=== PATIENT | female | born 1945 | race Caucasian/White ===

== ENCOUNTER 2025-04-26 09:11 | Emergency (ER) | payer OTHER, SELFPAY ==
[2025-04-26 09:13] VITALS: BP 142/67
--- NOTE | 2025-04-26 09:25 | ED.GENMED ---
History of Present Illness
General
Chief Complaint: Fall
Source: patient
Exam Limitations: none
Time Seen by Provider: 04/26/25 09:14
Nursing documentation reviewed up to this point in time: agreed with
History of Present Illness
History of Present Illness:
79 yr old female sent from [facility] presents to the ER for evaluation of fall. I spoke to nurse at facility patient was found on the side of the bed on the floor. Medics report they did find her on the floor. Medics were unsure if she had left
arm pain because she was holding her left wrist and seemed to be guarding her left wrist with her right arm.
Patient presents awake alert confused not able to give history.
Phy Exam
General Physical Exam
General Presentation: no apparent distress
General age: appears stated age
General Skin: warm and dry
General Habitus: normal
General Mental: alert
General Hydration: appears well hydrated
Neurological Exam
Neurological Exam: alert and other (Attempt to answer questions oriented to name confused at baseline)
Musculoskeletal Exam
Musculoskeletal Exam: other (No obvious head injury on exam full range of motion to bilateral upper and lower extremities)
Skin Exam
Skin Exam: normal color and warm/dry
Psychiatric Exam
Psychiatric Exam: normal mood/affect
Course
Orders/Labs/Results
Orders:
Orders
04/26/25 09:22
CT Cervical Spine W/o Iv Contr Urgent
Comment:
Reason For Exam: trauma
CT Head W/o Iv Contrast Urgent
Comment:
Reason For Exam: trauma
04/26/25 09:31
Forearm, Left 2 View [CR Forearm - Left 2 View] Urgent
Comment:
Reason For Exam: trauma
Shoulder, Left, Trauma CR [CR Shoulder, Trauma - Left] Urgent
Comment:
Reason For Exam: trauma
Vital Signs
Initial and Last Documented VS:
Initial Vital Signs
Temp Pulse Resp BP Pulse Ox
98.1 F 65 20 142/67 99
04/26/25 09:13 04/26/25 09:13 04/26/25 09:13 04/26/25 09:13 04/26/25 09:13
Last Documented Vital Signs
Temp Pulse Resp BP Pulse Ox
98.1 F 63 20 142/62 98
04/26/25 09:13 04/26/25 12:27 04/26/25 09:13 04/26/25 12:27 04/26/25 12:27
MDM/Problems Addressed
Differential Diagnosis Includes:
Not limited to head injury, extremity injury
MDM/Problems Addressed:
Patient is a 79-year female who was found on the floor by her bed at nursing care facility. She has a history of dementia Family with patient. Patient is at baseline mental status no obvious head injury on exam however because she was on the
floor and unknown if head injury imaging was done and negative for acute findings. Initially medics were not sure if she was guarding her left arm however on exam she is fully moving all extremities x-rays were done to rule out any injury because
of her dementia history and she is a difficult historian. X-rays were negative. She ambulated at baseline stable for discharge back to nursing care facility.
Chronic conditions affecting care:
Alzheimer's
*Radiology
Radiology exam reviewed: radiology read reviewed
*Pulse Oximetry
SaO2: 99
Oxygen Mode of Delivery: Room air
Patient hypoxic: no
*Critical Care Note
Total Time (30-74mins, 75-104mins- exclusive of procedures): Not Applicable
ED Attending Note
-
Portions of this chart may have been created with voice recognition software.� Occasional wrong word or��sound alike� substitutions may have occurred due to the inherent limitations of voice recognition software.
Discharge Plan
Departure
Patient Disposition: Home (Routine Discharge)
Date of Disposition: 04/26/25
Time of Disposition: 12:23
Patient with high blood pressure during this ER visit?: Yes
Condition: Fair
Covid-19: Not Applicable
Discharge Problem:
Fall
Instructions: Preventing falls in adults
Referrals:
UNKNOWN - PT DOES,NOT KNOW [Family Provider]
Activity Restrictions/Additional Instructions:
CAT scans were done of patient's head and cervical spine along with x-rays of her left arm which were negative.
Interventions
Interventions:
*General Assessment Last Done: 04/26/25 09:25
*Neglect/Abuse Screening Last Done: 04/26/25 09:26
*ED COVID-19 Vaccine History Last Done: 04/26/25 09:25
*ED Influenza Vaccine History Last Done: 04/26/25 09:25
[facility] Fall Risk Assessment Tool Last Done: 04/26/25 09:26
*Risk Screen - Suicide (C-SSRS) Last Done: 04/26/25 09:26
ED-Musculoskeletal Assessment Last Done: 04/26/25 09:34
ED- Neurological Assessment Last Done: 04/26/25 09:23
ED-Skin Assessment Last Done: 04/26/25 09:22
Discharge Date and Time
Print Language: MOROCCAN
[2025-04-26 12:27] VITALS: BP 142/62
== END 2025-04-26 13:39 ==
LOC: EMR 09:11
PROVIDERS: EMERGENCY PHYSICIAN Emergency Medicine
DX: M79.602 Pain in left arm (principal); X58.XXXA Exposure to other specified factors, initial encounter; Z86.73 Personal history of transient ischemic attack (TIA), and cerebral infarction without residual deficits; F02.80 Dementia in other diseases classified elsewhere, unspecified severity, without behavioral disturbance, psychotic disturbance, mood disturbance, and anxiety; G30.9 Alzheimer's disease, unspecified
CPT/HCPCS: 99284; 70450; 72125; 73030; 73090